=== PATIENT | female | born 2000 | race Two or more races ===

== ENCOUNTER 2025-01-22 19:09 | Emergency (ER) | payer MEDICAID, SELFPAY ==
[2025-01-22 19:10] VITALS: BMI 31.6
[2025-01-22 19:19] VITALS: BP 133/78; PULSE 106; RESP 18; TEMP 36.8; O2SAT 98
--- NOTE | 2025-01-22 19:23 | XR_ITS ---
Examination: CT abdomen and pelvis without contrast. Coronal 3-D reconstructions. Sagittal 2-D reconstructions. Date and time of exam:January 22, 20252020 hrs. Indications: Onset left flank pain today CTDI: vol (mGy): 9.88 DLP: (mGycm): 614 Technique: Axial images of the abdomen have been obtained, 3 mm slice thickness Intravenous contrast material has not been administered. Low dose protocols were performed. One or more of the following dose reduction techniques were used; automated exposure control, adjustment of the mA and/or KV according to patient size, use of iterative reconstruction technique. Findings: No focal liver or splenic lesions No gallstones No pancreatic or adrenal mass Moderate left hydronephrosis secondary to 12 mm distal left ureteral calculus Aorta normal size No bowel obstruction Normal appendix Urinary bladder intact Impression: Moderate left hydronephrosis secondary to 12 mm distal left ureteral calculus
--- NOTE | 2025-01-22 19:24 | PD.EDRME ---
Rapid Medical Screening Exam RME Arrival date/time: 01/22/25 19:09 24-year-old female presents emergency department complaining of left flank pain that radiates down to her left side of her pelvis that started earlier today she also endorses nausea. Chief Complaint: Back Pain/Injury Time Seen by Provider: 01/22/25 19:18 Vital signs: Vital Signs Temperature 98.3 F 01/22/25 19:19 Pulse Rate 106 H 01/22/25 19:19 Respiratory Rate 18 01/22/25 19:19 Blood Pressure 133/78 H 01/22/25 19:19 Pulse Oximetry (%) 98 01/22/25 19:19 Oxygen Delivery Method Room Air 01/22/25 19:19 Vital signs reviewed by provider: Yes
[2025-01-22] MEDS: ONDANSETRON ODT 4 MG TABRAP PO (19:44)
[2025-01-22 19:45] LABS: Basophils % (Auto) 0 % (0-2.5); Eosinophils # (Auto) 0.1 Thou/mm3 (0.0-0.5); Eosinophils % (Auto) 0 % (0-10); Hematocrit 34.8 % (36.0-46.0); Hemoglobin 11.3 g/dL (12.0-16.0); Immature Granulocytes % (Auto) 0 % (0-0); Immature Granulocytes Auto 0.05 Thou/mm3 (0.00-0.00); Lymphocytes # (Auto) 2.2 Thou/mm3 (1.0-4.8); Lymphocytes % (Auto) 15 % (10-50); Mean Corpuscular HGB Conc 32.5 g/dl (31.0-37.0); Mean Corpuscular Hemoglobin 24.4 pg (25.0-35.0); Mean Corpuscular Volume 75 fL (80-100); Monocytes # (Auto) 0.8 Thou/mm3 (0.0-0.8); Monocytes % (Auto) 6 % (0-12); Neutrophils # (Auto) 11.4 Thou/mm3 (1.8-7.7); Neutrophils % (Auto) 79 % (37-80); Nucleated Red Blood Cell % 0 /100 WBC (0); Platelet Count 283 Thou/mm3 (140-440); RDW Standard Deviation 42.7 fL (36.4-46.3); Red Blood Count 4.64 Miln/mm3 (4.00-5.20); White Blood Count 14.5 Thou/mm3 (3.6-11.0)
[2025-01-22] MEDS: HYDROcodone/APAP 5/325 TABLET 1 TAB PO (19:45)
[2025-01-22 19:54] LABS: Collection Type, Urine Clean Catch
[2025-01-22 20:07] LABS: Bacteria,Urine Rare; Bilirubin,Urine Negative (Negative); Blood,Urine 2+ (Negative); Clarity,Urine Turbid (Clear/Hazy); Color,Urine Lt-Yellow (Lt Yel-Yel); Glucose, Urine Negative (Negative); Ketones,Urine Negative (Negative); Leukocyte Esterase,Urine Positive (Negative); Nitrite,Urine Negative (Negative); Protein,Urine Trace (Neg - Trace); RBC,Urine 44 /hpf (0-3); Specific Gravity,Urine 1.033 (1.001-1.035); Squamous Epithelial Cell,Urine 8 /hpf (0-5); Urobilinogen,Urine Negative mg/dL (0.0-1.0); WBC,Urine 26 /hpf (0-5)
[2025-01-22 20:08] LABS: Culture Indicated,Urine Yes
[2025-01-22 20:09] LABS: Alanine Aminotransferase 9 U/L (10-49); Albumin, Serum 4.9 gm/dL (3.5-5.0); Albumin/Globulin Ratio 1.7 (1.2-2.2); Alkaline Phosphatase 112 U/L (46-116); Anion Gap 10 (7-16); Aspartate Amino Transferase 16 U/L (0-34); BUN/Creatinine Ratio 20 Ratio (12-20); Bilirubin,Total 0.4 mg/dL (0.3-1.2); Blood Urea Nitrogen 18 mg/dL (9-23); Calcium 9.5 mg/dL (8.3-10.6); Calcium (Corrected) 9.5 mg/dL (8.5-10.1); Carbon Dioxide 22.8 mMol/L (20.0-31.0); Chloride 106 mMol/L (98-107); Creatinine (Component) 0.9 mg/dL (0.6-1.3); Estimated Creatinine Clearance 102.7 mL/min (>60); Globulin 2.9 gm/dL (2.3-3.5); Glucose 104 mg/dL (74-106); Lipase 35 U/L (12-53); Osmolality,Calculated 279 (275-295); Potassium 3.9 mMol/L (3.4-5.1); Sodium 139 mMol/L (136-145); Total Protein 7.8 gm/dL (5.7-8.2); eGFR > 60 See Note
[2025-01-22 20:14] LABS: HCG,Qualitative Serum Negative
[2025-01-22 20:28] VITALS: BP 124/80; PULSE 103; RESP 20; O2SAT 100
[2025-01-22 22:00] VITALS: BP 123/87; PULSE 98; RESP 20; TEMP 36.9; O2SAT 98
[2025-01-22 22:06] VITALS: BP 123/87; PULSE 111; O2SAT 98
--- NOTE | 2025-01-22 22:44 | EDNOTE_ITS ---
ED Back Injury Pain RME/HPI General Chief Complaint: Back Pain/Injury Stated Complaint: LEFT LOWER BACK PAIN Time Seen by Provider: 01/22/25 19:18 Arrival date/time: 01/22/25 19:09 RME / HPI RME / HPI Narrative: 01/22/25 19:09 24-year-old female presents emergency department complaining of left flank pain that radiates down to her left side of her pelvis that started earlier today she also endorses nausea. --------- Dr. Benjamin?s Main ED Evaluation: 24yo female with no significant past medical history presents to the ED for a chief complaint of left flank pain x 0800. Patient states she's had persistent left flank pain since this morning, reporting she's been taking OTC medications without any improvement, so she came in for evaluation. She denies any N/V, fever, chills, dysuria, urinary frequency, urgency or any other associated symptoms. Denies any history of kidney stones. Patient states she had a similar episode of pain 2 weeks ago, reporting her symptoms resolved on its own. No known allergies. Related Data Previous Rx's ?Medication ?Instructions ?Recorded cephalexin 500 mg capsule 500 mg PO BID Urinary tract 01/23/25 infection 10 days #20 caps hydrocodone 5 mg-acetaminophen 325 1 tab PO .q4-6 PRN pain 3 days #14 01/23/25 mg tablet tabs ibuprofen 600 mg tablet 600 mg PO Q6H PRN pain 5 day s #20 01/23/25 tabs ondansetron 4 mg disintegrating 4 mg PO Q6H PRN nausea and 01/23/25 tablet vomiting #20 tabs Allergies Allergy/AdvReac Type Severity Reaction Status Date / Time No Known Allergies Allergy Verified 01/22/25 19:13 Review of Systems Review of Systems Systems Reviewed: All systems reviewed, normal except as documented Past Medical History Past Medical History CARDIAC: Negative Congestive Heart Failure RESPIRATORY: Negative Chronic Obstructive Pulmonary Disease (COPD) GENITOURINARY: Negative Renal Disease ENDOCRINE: Negative Diabetes Mellitus Type 1 or Diabetes Mellitus Type 2 Social History SMOKING STATUS: Never smoker ED Exam Narrative Physical exam: GENERAL APPEARANCE: alert and oriented x 4, well-developed, well-nourished, appears uncomfortable VITALS: All vitals were reviewed and the pulse ox is 98% on room air, which is normal according to my interpretation. HEENT: Normocephalic, atraumatic; pupils equal, round, reactive to light; EOMI; mucous membranes pink, moist; oropharynx clear NECK: Supple LUNGS: CTABL; no wheezes, no rales, no rhonchi HEART: Regular rate, regular rhythm; normal S1, S2; no murmurs ABDOMEN: non distended; normal BS; soft, moderate generalized left-sided tenderness, no guarding, no rebound; no masses, no organomegaly, no hernia BACK: left CVA tenderness EXTREMITIES: atraumatic; no edema NEUROLOGIC: awake; alert and oriented x4; cranial nerves II-XII grossly intact; no focal sensory or motor deficits PSYCHIATRIC: appropriate mood and affect SKIN: warm, dry, normal color; no rashes Course Quality Measures none Orders Category Date Time Status Hospital Secretary Q4H START 00 Care 01/22/25 22:36 Completed Continuous Pulse Oximetry NOW Care 01/22/25 22:36 Completed NPO STAT Care 01/22/25 22:[address] abdomen pelvis wo con Stat Exams 01/22/25 19:23 Completed CBC Stat Lab 01/22/25 19:38 Completed CMP [Comprehensive Metabolic Panel] Stat Lab 01/22/25 19:38 Completed HCG,Qualitative Serum Stat Lab 01/22/25 19:38 Completed LDH (Lactate Dehydrogenase) Stat Lab 01/22/25 23:19 Completed Lactate (Lactic Acid) Stat Lab 01/22/25 23:19 Completed Lipase Stat Lab 01/22/25 19:38 Completed Magnesium Stat Lab 01/22/25 23:19 Completed Phosphorous Stat Lab 01/22/25 23:19 Completed Procalcitonin Stat Lab 01/22/25 23:19 Completed Urinalysis, C/S if Indicated Stat Lab 01/22/25 19:45 Completed Urine Culture Stat Lab 01/22/25 19:45 Received HYDROcodone*/APAP 5/325 [[place] 5/325] Med 01/22/25 19:23 Discontinued 1 tab PO X1 ONE HYDROmorphone INJ [Dilaudid Inj] Med 01/22/25 22:36 Discontinued 0.5 mg IVP X1 ONE Ketorolac Inj [Toradol Inj] Med 01/22/25 22:36 Discontinued 30 mg IVP X1 ONE Ondansetron Inj [Zofran Inj] Med 01/22/25 22:36 Discontinued 4 mg IV X1 ONE Ondansetron Odt [Zofran Odt] Med 01/22/25 19:24 Discontinued 4 mg PO X1 ONE cefTRIAXone [Rocephin] 1,000 mg Med 01/22/25 22:46 Discontinued SODIUM CHLORIDE 0.9% (Popper) [NS 0.9% (Popper)] 50 ml IV X1 Vital Signs Vital signs: Vital Signs Temperature 98.3 F 01/22/25 19:19 Pulse Rate 106 H 01/22/25 19:19 Respiratory Rate 18 01/22/25 19:19 Blood Pressure 133/78 H 01/22/25 19:19 Pulse Oximetry (%) 98 01/22/25 19:19 Oxygen Delivery Method Room Air 01/22/25 19:19 Back Pain / Injury MDM Narrative MDM Narrative:: Scribe Attestation: 01/22/25 - Libby Farris, iron scribing for and in the presence of Dr. Benjamin. 2256: Spoke with [facility]'s transfer center. Awaiting callback to speak with their urologist. 0053: Spoke with Dr. Nuñez, urologist from [facility]. I discussed with him how the patient has a 12 mm ureteral stone, UTI, leukocytosis, and is tachycardic. He states that since the patient is afebrile here, he does not feel the patient is uroseptic and is refusing to accept the patient for transfer and feels the patient is stable to be discharged home on antibiotics. Patient data External records reviewed:: [facility] previous records (Per chart review, patient has no previous ED visits or admissions to this facility.) Clinical information provided by:: patient Social determinants that could affect healthcare access:: none Patient has the following chronic illnesses:: none How is presenting disease/condition affected by chronic disease/condition?: no chronic disease Evaluation data The following diagnostics were reviewed and interpreted by me:: lab results and radiology exam(s) Lab and/or radiology exams considered but not ordered:: none Interpretation Summary: WBC count is elevated at 14.5 with a left shift, CMP is normal, Lipase is normal, HCG is negative, UA shows 44 RBCs, 26 WBCs, and rare bacteria, according to my interpretation. [facility] Report Signed Patient: CLARK MANSFIELD. Record#: [id number] Birthdate: 2000 Age/Sex: 24 / F Location: [facility] Attending Dr: Ordering Physician: Fabiana Mendez ([facility])[place] Date of Service: 01/22/25 Procedure(s): CT abdomen pelvis wo con Accession Number(s): [id number] cc: Leonid Singh MD; NO PRIMARY/FAMILY,PHYSICIAN; Fabiana Mendez ([employer]),Kurtis LOZANO~ Examination: CT abdomen and pelvis without contrast. Coronal 3-D reconstructions. Sagittal 2-D reconstructions. Date and time of exam:January 22, 20252020 hrs. Indications: Onset left flank pain today CTDI: vol (mGy): 9.88 DLP: (mGycm): 614 Technique: Axial images of the abdomen have been obtained, 3 mm slice thickness Intravenous contrast material has not been administered. Low dose protocols were performed. One or more of the following dose reduction techniques were used; automated exposure control, adjustment of the mA and/or KV according to patient size, use of iterative reconstruction technique. Findings: No focal liver or splenic lesions No gallstones No pancreatic or adrenal mass Moderate left hydronephrosis secondary to 12 mm distal left ureteral calculus Aorta normal size No bowel obstruction Normal appendix Urinary bladder intact Impression: Moderate left hydronephrosis secondary to 12 mm distal left ureteral calculus Dictated By: Leonid Singh MD Signed By: <Electronically signed by Leonid Singh MD in OV> 01/22/25 2835 Medications / Prescriptions Medications or Prescriptions considered but not ordered:: none Medication administrations:: Medication Administration History Discontinued Medications Hydrocodone Bitart/Acetaminophen (Hydrocodone/Apap 5/325 Tablet) 1 tab PO X1 ONE Stop: 01/22/25 19:24 Last Admin: 01/22/25 19:45 Dose: 1 tab Documented By: ASHANTI Hydromorphone HCl (Hydromorphone Inj 2 Mg/Ml Vial) 0.5 mg IVP X1 ONE Stop: 01/22/25 22:37 Last Admin: 01/22/25 22:53 Dose: 0.5 mg Documented By: GRUPO Ceftriaxone Sodium 1,000 mg/ (Sodium Chloride) 50 mls @ 100 mls/hr IV X1 ONE Stop: 01/22/25 23:15 Last Infusion: 01/22/25 23:30 Dose: Infused Documented By: Admin: 01/22/25 23:00 Dose: 100 mls/hr Documented By: GRUPO Ketorolac Tromethamine (Ketorolac Inj 30 Mg/Ml Vial) 30 mg IVP X1 ONE Stop: 01/22/25 22:37 Last Admin: 01/22/25 22:53 Dose: 30 mg Documented By: GRUPO Ondansetron HCl (Ondansetron Odt 4 Mg Tabrap) 4 mg PO X1 ONE; Protocol Stop: 01/22/25 19:25 Last Admin: 01/22/25 19:44 Dose: 4 mg Documented By: ASHANTI Ondansetron HCl (Ondansetron Inj 2 Mg/Ml Inj 2 Ml) 4 mg IV X1 ONE; Protocol Stop: 01/22/25 22:37 Last Admin: 01/22/25 22:38 Dose: Not Given Documented By: GRUPO Non-Admin Reason: Discontinued see above Consultations Consultation(s) initiated? (list below): Yes Consultation #1 (Physician, Specialty, Details): See MDM narrative. Diagnosis Differential diagnosis back pain/injury: renal colic and other (pyelonephritis, UTI, diverticulitis) Most likely diagnosis given after review of the tests above:: see below Admission Indicated Admission indicated?: not indicated Explain why admission is indicated or not indicated:: Per Dr. Nuñez, patient is stable to be discharged home on antibiotics. Admission Request Was there a request for admission?: No Disposition Plan Disposition Plan: Discharge Discharge Attestation Discharge Attestation: The patient and all family members were given an opportunity to ask questions and understood the discharge instructions. Discharge instructions specifically effects, indications for sooner follow up or return to the emergency department, and the expected course of current diagnosis. Patient condition: Stable Discharge Plan Plan Patient Disposition: HOME (Self Care) Disposition Comment: Stable for discharge Patient condition on transfer: Stable Prescriptions/Referrals Prescriptions/Med Rec: New ondansetron 4 mg tablet,disintegrating 4 mg PO Q6H PRN (Reason: nausea and vomiting) Qty: 20 0RF ibuprofen 600 mg tablet 600 mg PO Q6H PRN (Reason: pain) 5 Days Qty: 20 0RF cephalexin 500 mg capsule 500 mg PO BID 10 Days Qty: 20 0RF hydrocodone-acetaminophen 5-325 mg tablet 1 tab PO .q4-6 MDD 6 tabs PRN (Reason: pain) 3 Days Qty: 14 0RF Referrals: Dr Jaycob Nuñez [Other] - 01/24/25 8:00 am (Patient was seen in the [facility] emergency department. Per emergency physician, Dr. Benjamin, spoke with Dr. Nuñez and he said he will see her in the office.) Problem List Clinical Impression: Renal colic, Urinary tract infection Patient/Caregiver Discharge Instructions Discharge Activity: activity as tolerated Education Materials: Anatomy of the Female Urinary Tract, Urinary Tract Infections in Women, ED Kidney Stone w/ Colic Additional Instructions: Tonjose you were seen in the emergency department at [facility] for left flank pain. Your CT scan showed that you have a large kidney stone on the left. The kidney stone is 12 mm and it is currently in the distal left ureter. You also have a urinary tract infection. I called and spoke with a urologist at [facility] and his name is Dr. Jaycob Nuñez. I have included his office information including address and phone number above. When I spoke with them let them know that you have a large kidney stone and that you also have a urinary tract infection. He said that you could be treated as an outpatient and that he will see you in his office. Tenjose we gave you pain medication as well as an antibiotic called Rocephin. At your pharmacy there will be several medications waiting for you. One of them will be antinausea medicine called ondansetron. One of them will be h ydrocodone which is a pain medication. You cannot drive after taking hydrocodone. You will also have 600 mg ibuprofens as well as an antibiotic called cephalexin. You take the cephalexin twice per day for the full 10 days please, even if you are feeling better before you are done taking those. The most important thing to remember is to return to the ER right away if you feel chills, you get sweats, you have fevers or if you worsen in any way and we will help you. Print Language: Thai Stand Alone Forms: Cassy Award Info., Patient Portal Info Letter
[2025-01-22] MEDS: KETOROLAC INJ 30 MG/ML VIAL IVP (22:53)
[2025-01-22] MEDS: HYDROmorphone INJ 2 MG/ML VIAL 0.5 MG IVP (22:53)
[2025-01-22 23:00] VITALS: BP 128/83; O2SAT 98
[2025-01-22] MEDS: cefTRIAXone 1,000 MG in SODIUM CHLORIDE 0.9% (Popper) 50 ML 100 MG IV (23:00)
--- NOTE | 2025-01-22 23:01 | PC.NURSE ---
I SPOKE WITH BRONSON FROM THE [facility] AND I FAXED OVER A PACKET AT THIS TIME.
[2025-01-22 23:34] LABS: Lactate (Lactic Acid) 0.9 mMol/L (0.4-2.0)
[2025-01-23] VITALS: BP 127/70; PULSE 74; O2SAT 98
[2025-01-23] LABS: LDH (Lactate Dehydrogenase) 158 U/L (120-246); Magnesium 1.9 mg/dL (1.6-2.6); Phosphorous 2.6 mg/dL (2.4-5.1); Procalcitonin < 0.04 ng/ml (0.0-0.49)
[2025-01-23 01:00] VITALS: BP 113/64
== END 2025-01-23 01:22 | disposition home or self-care (01) ==
PROVIDERS: Emergency Provider Emergency Medicine
DX: N39.0 Urinary tract infection, site not specified (principal)
CPT/HCPCS: 36415; 74176; 80053; 81001; 83605; 83615; 83690; 83735; 84100; 84145; 84703; 85025; 87086; 96365; 96375; 99284; J0696; J1885; J3490; J7050; Q0162; A9270